=== PATIENT | female | born 1945 | race Caucasian/White ===

== ENCOUNTER → 2018-01-13 | Outpatient (CLI) | payer MEDICARE, OTHER ==
[2015-05-01 14:31] VITALS: BMI 21.3
[~2018-01-13] MED LIST: ASPI-757 PO; CALC-18 PO; GLUC-158 PO; MULT1TAB64 PO; NITR-106 PO; OXYC-865 PO
--- NOTE | 2018-01-13 09:36 | RADIOLOGY IMAGING REPORT ---
FACILITY: [facility] [place] PATIENT NAME: Pema Zamora : 1945 MR: [id number] V: [id number] EXAM DATE: ORDERING PHYSICIAN: VICENTE HERNANDEZ TECHNOLOGIST: Location: [facility] [place] Patient: Pema Zamora : 1945 Visit/Account:[id number] Date of Sevice: 01/13/2018 DEXA Scan Clinical history: Osteopenia. Comparison: DEXA scan from 02/25/2011. LUMBAR SPINE: The bone mineral density (BMD) measured from L2-3 correlates with a Z-score -0.1 and a T-score of -1 .7 which is osteopenia as defined by the World Health Organization. The corresponding risk of fractu re in the lumbar spine is increased compared with a young adult reference population. This value has increased by 6 % since the prior study. More than 5% change is considered significant. HIP: Bone mineral density (BMD) measured in the right femoral neck region correlates with a Z-score -0.4 a nd a T-score of -2.1 which is osteopenia as defined by the World Health Organization. The correspo nding risk of fracture in the hip is increased compared with a young adult reference population. Com parison to prior study is not performed, as the prior study the images were obtained on the left femo ral neck region. Bone mineral density (BMD) measured in the Femoral Neck region measures 0.745 g/cm2. IMPRESSION: 1. Lumbar spine: Osteopenia. There has been increased in the bone mineral density since the previou s exam. 2. Left femoral neck region: Osteopenia. 3. Femoral Neck: Bone Mineral Density is 0.745 g/cm2 The next DEXA scan of this patient should include the following sites: L1-L4 and the left hip. FRAX? WHO Fracture Risk Assessment Tool link: <http://www.shef.ac.uk/FRAX/tool.jsp?locationValue=9> PLEASE NOTE: 1) The World Health Organization defines low BMD as follows: T-score Normal > -1 Osteopenia < -1 and > -2.5 Osteoporosis < -2.5 without fractures Established osteoporosis < -2.5 with fractures 2) In general, you may wish to consider: Diagnosis Treatment Follow-up DEXA Normal BMD Prevention 2-3 years Osteopenia Prevention/therapy 1-2 years Osteoporosis Therapy Yearly 3) Fracture risk estimated from the T-score is more accurate for vertebral fractures (often spontane ous) than for hip fractures. Report Dictated By: Louie Kendrick at 01/13/2018 9:30 AM Report E-Signed By: Louie Kendrick at 01/13/2018 9:33 AM WSN:[email or web address]
--- NOTE | 2018-01-13 16:14 | RADIOLOGY IMAGING REPORT ---
FACILITY: [facility] PATIENT NAME: JORDAN HADDAD : [id number] MR: [id number] V: [id number] EXAM DATE: [id number] ORDERING PHYSICIAN: VICENTE HERNANDEZ TECHNOLOGIST: Ashley Mike PROCEDURE:BILATERAL DIGITAL SCREENING MAMMOGRAM WITH CAD ASSISTED INTERPRETATION & 3D TOMOSYNTHESIS COMPARISON:Mammogram 10/27/2013 and 02/25/2011. INDICATIONS:SCREENING FINDINGS: MLO and CC views of both Right and Left breasts were obtained. Thomosynthesis images were also reviewed. Breast tissue is predominantly fatty. There is no suspicious mass, calcifications or architectural distortion. DIAGNOSTIC CATEGORY 1--NEGATIVE. RECOMMENDATIONS: ROUTINE MAMMOGRAM AND CLINICAL EVALUATION. IMPRESSION: BIRADS 1: Negative. No mammographic evidence for malignancy. Dictated by: Louie Kendrick M.D. on 01/13/2018 at 13:51 Transcribed by: ROBIN on 01/13/2018 at 14:38 Approved by: Louie Kendrick M.D. on 01/13/2018 at 16:13 [facility]
== END ==
LOC: MAMO 01:32
PROVIDERS: ATTEND Nurse Practitioner Family
DX: Z13.820 Encounter for screening for osteoporosis (principal); Z12.31 Encounter for screening mammogram for malignant neoplasm of breast; M85.89 Other specified disorders of bone density and structure, multiple sites
CPT/HCPCS: 77063; 77067; 77080